=== PATIENT | female | born 1990 | race African-American/Black ===

== ENCOUNTER 2017-07-12 18:24 | Emergency (ER) | payer OTHER ==
[~2017-07-12] VITALS: Ht 162.6 cm; Wt 56.7 kg
[2017-07-12 18:28] VITALS: Ht 162.6 cm; Wt 56.7 kg
[2017-07-12 19:25] LABS: PLATELET COUNT 299 x10^3mcL (130-400); RED CELL DISTRIBUTION WIDTH 13.5 % (11.5-14.5)
[2017-07-12 19:33] LABS: CALCIUM 9.9 mg/dL (8.5-10.1); CARBON DIOXIDE 20.4 mmol/L (21-32); CREATININE SERUM 1.3 mg/dL (0.6-1.0)
[2017-07-12 19:37] LABS: ALBUMIN 4.7 g/dL (3.4-5.0); BILIRUBIN TOTAL 1.9 mg/dL (0.20-1.00)
[2017-07-12 19:42] LABS: microscopic required? YES; urine erythrocyte NEGATIVE (NEGATIVE)
[2017-07-12 19:52] LABS: AMPHETAMINE QUAL UR POSITIVE (NEG <=1000)
[2017-07-12 20:46] LABS: BAND NEUTROPHIL 0 % (0-10); MONOCYTE 5 % (0-7); SEGMENTED NEUTROPHILS 84 % (37-75)
[2017-07-12 20:47] LABS: rbc morphology (normal/abnorm) ABNORMAL (NORMAL)
[2017-07-12 21:07] VITALS: BP 110/55
== END 2017-07-12 21:07 | disposition home or self-care (01) ==
LOC: ED 18:24
PROVIDERS: Emergency Medicine
DX: F41.9 Anxiety disorder, unspecified (principal); F15.20 Other stimulant dependence, uncomplicated; E86.0 Dehydration; E87.6 Hypokalemia; D72.829 Elevated white blood cell count, unspecified; F12.10 Cannabis abuse, uncomplicated
CPT/HCPCS: J1885; J2060; J2405